=== PATIENT | male | born 1970 | race Two or more races ===

== ENCOUNTER 2017-06-11 07:05 | Outpatient (CLI) | payer OTHER | END 2017-06-11 07:20 | disposition home or self-care (01) | LOC: SONOGRAMA 07:05 | DX: R97.20 Elevated prostate specific antigen [PSA] (principal) ==

== ENCOUNTER 2017-09-03 08:23 | Outpatient (CLI) | payer OTHER | END 2017-09-03 15:11 | disposition home or self-care (01) | LOC: RX STUDY 08:23 | DX: K22.0 Achalasia of cardia (principal); K62.5 Hemorrhage of anus and rectum; K57.30 Diverticulosis of large intestine without perforation or abscess without bleeding; Z86.010 Personal history of colon polyps ==

== ENCOUNTER 2018-05-04 14:40 | Outpatient (CLI) | payer OTHER | END 2018-05-04 14:42 | disposition home or self-care (01) | LOC: SONOGRAMA 14:40 → MAMO-SONO 14:45 | DX: R97.20 Elevated prostate specific antigen [PSA] (principal); R31.21 Asymptomatic microscopic hematuria ==

== ENCOUNTER 2019-01-21 07:39 | Outpatient (CLI) | payer OTHER | END 2019-01-21 07:50 | disposition home or self-care (01) | LOC: RX STUDY 07:39 → MAMO-SONO 08:15 | DX: K22.0 Achalasia of cardia (principal); R13.14 Dysphagia, pharyngoesophageal phase; K30 Functional dyspepsia ==

== ENCOUNTER 2019-05-21 14:07 | Outpatient (CLI) | payer OTHER | END 2019-05-21 14:30 | disposition home or self-care (01) | LOC: SONOGRAMA 14:07 → MAMO-SONO 05-27 08:15 | DX: R31.29 Other microscopic hematuria (principal) ==

== ENCOUNTER 2019-11-17 08:13 | Outpatient (CLI) | payer OTHER | END 2019-11-17 08:15 | disposition home or self-care (01) | LOC: RX STUDY 08:13 | PROVIDERS: ATTEND Internal Medicine Gastroenterology | DX: K22.0 Achalasia of cardia (principal); K44.9 Diaphragmatic hernia without obstruction or gangrene; R13.14 Dysphagia, pharyngoesophageal phase ==

== ENCOUNTER 2020-06-09 08:20 | Outpatient (CLI) | payer OTHER | END 2020-06-09 08:27 | disposition home or self-care (01) | LOC: SONOGRAMA 08:20 → MAMO-SONO 10:15 | PROVIDERS: ATTEND Urology | DX: Q61.02 Congenital multiple renal cysts (principal); R97.20 Elevated prostate specific antigen [PSA]; R31.21 Asymptomatic microscopic hematuria ==

== ENCOUNTER 2021-07-03 13:24 | Outpatient (CLI) | payer OTHER | END 2021-07-03 13:32 | disposition home or self-care (01) | LOC: SONOGRAMA 13:24 | PROVIDERS: ATTEND Urology | DX: R97.20 Elevated prostate specific antigen [PSA] (principal); R31.21 Asymptomatic microscopic hematuria; N20.0 Calculus of kidney; N40.1 Benign prostatic hyperplasia with lower urinary tract symptoms ==

== ENCOUNTER 2021-08-01 13:46 | Outpatient (CLI) | payer OTHER | END 2021-08-01 13:56 | disposition home or self-care (01) | LOC: RAD 13:46 | PROVIDERS: ATTEND Urology | DX: N20.0 Calculus of kidney (principal); R97.20 Elevated prostate specific antigen [PSA]; R31.21 Asymptomatic microscopic hematuria ==

== ENCOUNTER 2022-07-12 07:14 | Outpatient (CLI) | payer OTHER | END 2022-07-12 07:38 | disposition home or self-care (01) | LOC: MRI 07:14 | PROVIDERS: ATTEND Urology | DX: R97.20 Elevated prostate specific antigen [PSA] (principal); R31.21 Asymptomatic microscopic hematuria; R31.1 Benign essential microscopic hematuria | CPT/HCPCS: 72197; 74183 ==

== ENCOUNTER → 2022-08-27 06:00 | Outpatient (CLI) | payer OTHER ==
[~2022-08-27] VITALS: Ht 167.6 cm; Wt 77.1 kg
[~2022-08-27 06:00] MED LIST: LOTREL 5-10 MG1 CAP PO; MULTIPLE VITAM1 EAC2 PO
== END | disposition home or self-care (01) ==
LOC: LAB 06:00 → ADM 07:30 → CIR LITO 08-30 07:00 → EDSTATUS 09-10 07:30 → AMB-ENDOS 09-10 07:30
PROVIDERS: ATTEND Urology
DX: Z01.811 Encounter for preprocedural respiratory examination (principal); Z01.812 Encounter for preprocedural laboratory examination; Z01.810 Encounter for preprocedural cardiovascular examination; Z20.822 Contact with and (suspected) exposure to COVID-19; R97.20 Elevated prostate specific antigen [PSA]; R31.21 Asymptomatic microscopic hematuria

== ENCOUNTER 2022-11-29 06:20 | Day surgery (SDC) | payer OTHER ==
[~2022-11-29] VITALS: Ht 167.6 cm; Wt 76.7 kg
[~2022-11-29 06:20] MED LIST changes: +ZYRTEC10 M3 PO
== END 2022-11-29 13:05 | disposition home or self-care (01) ==
LOC: U 06:20 → CIR.AMB 06:20
PROVIDERS: ATTEND Urology
DX: N20.0 Calculus of kidney (principal); Z20.822 Contact with and (suspected) exposure to COVID-19; Z91.041 Radiographic dye allergy status

== ENCOUNTER 2023-01-08 13:47 | Outpatient (CLI) | payer OTHER | END 2023-01-08 14:03 | disposition home or self-care (01) | LOC: RAD 13:47 | PROVIDERS: ATTEND Urology | DX: N20.0 Calculus of kidney (principal) ==

== ENCOUNTER 2023-07-08 14:03 | Outpatient (CLI) | payer OTHER | END 2023-07-08 14:22 | disposition home or self-care (01) | LOC: RAD 14:03 | PROVIDERS: ATTEND Urology | DX: N20.0 Calculus of kidney (principal); R31.1 Benign essential microscopic hematuria ==